=== PATIENT | female | born 1955 | race African-American/Black ===

== ENCOUNTER 2018-06-08 21:25 | Emergency (ER) | payer OTHER ==
[~2018-06-08] VITALS: Ht 165.1 cm; Wt 104.0 kg
[2018-06-08] MEDS ORDERED: ONDANSETRON HCL 4MG/2ML INJ IV STA (23:28)
[2018-06-08] MEDS ORDERED: KETOROLAC 30MG/ML VIAL IV STA (23:28)
[2018-06-09] MEDS ORDERED: HYDROCODONE/ACETAMINOPHEN 10/325MG TABLET PO ONE (01:30)
[2018-06-09] MEDS ORDERED: METHOCARBAMOL 500MG TABLET PO ONE (01:30)
[2018-06-09 02:35] VITALS: BP 119/53
== END 2018-06-09 03:18 | disposition home or self-care (01) ==
LOC: ER 22:19
DX: S16.1XXA Strain of muscle, fascia and tendon at neck level, initial encounter (principal); S00.83XA Contusion of other part of head, initial encounter; M25.561 Pain in right knee; M25.511 Pain in right shoulder; E11.9 Type 2 diabetes mellitus without complications; I10 Essential (primary) hypertension; Z90.710 Acquired absence of both cervix and uterus; Z88.5 Allergy status to narcotic agent; Z88.8 Allergy status to other drugs, medicaments and biological substances; Z88.1 Allergy status to other antibiotic agents; V49.88XA Car occupant (driver) (passenger) injured in other specified transport accidents, initial encounter; Y93.89 Activity, other specified; Y92.89 Other specified places as the place of occurrence of the external cause; Y99.8 Other external cause status
CPT/HCPCS: 70450; 71045; 72125; 73030; 73060; 73080; 73560; 73600; 96374; 96375; 99284; J1885; J2405